=== PATIENT | female | born 1955 | race Caucasian/White ===

== ENCOUNTER 2017-10-07 13:04 | Inpatient (IN) ==
[2017-10-07 14:22] LABS: Basophils % 0.3 %; Eosinophils # 0.3 K/mcL (0.0-0.6); Eosinophils % 3.4 %; Hematocrit 39.7 % (35.3-44.9); Hemoglobin 12.3 g/dL (11.5-15.4); Immature Granulocytes % 1.4 % (0-4); Lymphocytes # 1.5 K/mcL (0.6-4.6); Lymphocytes % 20.3 %; Mean Corpuscular Hemoglobin 23.4 pg (28.0-33.3); Mean Corpuscular Volume 75.5 fL (83.0-100.0); Mean Platelet Volume 9.8 fL (9.4-12.4); Monocytes # 0.8 K/mcL (0.0-1.3); Monocytes % 10.9 %; Neutrophils # 4.7 K/mcL (1.6-8.9); Nucleated Red Blood Cells 0.3 /100 WBC (0); Platelet Count 198 K/mcL (140-400); Red Blood Count 5.26 M/mcL (3.82-4.97); Red Cell Distribution Width 19.1 % (11.5-14.5); Segmented Neutrophils % 63.7 %
[2017-10-07 14:45] LABS: Troponin I < 0.03 ng/mL (< 0.04)
[2017-10-07 15:16] LABS: BUN/Creatinine Ratio 14 (6-26); Blood Urea Nitrogen 16 mg/dL (8-23); Calcium 9.6 mg/dL (8.6-10.3); Carbon Dioxide 28 mEq/L (23-29); Chloride 102 mEq/L (98-107); Glucose 102 mg/dL (70-105); Osmolality,Calculated 291 (280-300); Potassium 4.2 mEq/L (3.5-5.1); Sodium 140 mEq/L (136-145); eGFR For African Americans 59 (> 60); eGFR For Non-African Americans 49 (> 60)
[2017-10-07] MEDS ORDERED: Ipratropium/Albuterol Neb 3 ML IH ONE (15:46)
--- NOTE | 2017-10-07 16:31 | Emergency Department Note ---
Disposition Clinical Impression: Acute exacerbation of chronic obstructive airways disease Pulmonary embolism Qualifiers: Pulmonary embolism type: other Chronicity: acute Acute cor pulmonale presence: without acute cor pulmonale Qualified Code(s): I26.99 - Other pulmonary embolism without acute cor pulmonale Disposition: Admitted As Inpatient Condition: Good Referrals: Kamini Lozano MD [Primary Care Provider] - Forms: ED Satisfaction Letter Time of Disposition: 16:39 SOB HPI - General Chief Complaint: ED Shortness of Breath/Dyspnea Stated Complaint: ALISON Source: patient, family, EMS Limitations: other (vague historian) Nursing Notes Reviewed: Yes Vital Signs Reviewed: Yes - History of Present Illness This is a 62 year-old female with history of asthma, COPD, PNA, and psychiatric problems, who presents with dyspnea, which is describes as a chronic problem, worse for the past few days. Associated with nonproductive cough and wheezing. She denies any associated chest pain, unilateral leg pain or swelling. Her also reports that she has been confused at times. She was sent to the ER from urgent care, where poor SpO2 was noted. Pt Subjective Complaint: shortness of breath, cough Onset (ago): week(s) (?) Severity: moderate Consistency/Duration: gradually worsening Improves with: nothing Worsens with: nothing Known history of: COPD, asthma, recurrent pneumonia Associated symptoms: Denies: chest pain, fever, cough - Related Data Home Medications Medication Instructions Recorded Confirmed Cyanocobalamin (Vitamin B-12) 1,000 mcg PO DAILY 07/01/16 09/02/16 [Vitamin B12] Divalproex (24 HR) [Depakote ER 2,000 mg PO HS 07/01/16 09/02/16 (24 HR)] Docusate [Colace] 200 mg PO DAILY 07/01/16 09/02/16 Gabapentin [Neurontin] 400 mg PO TID 07/01/16 09/02/16 Hydrochlorothiazide [Microzide] 2 cap PO DAILY 07/01/16 09/02/16 Linaclotide [Linzess] 290 mcg PO DAILY 07/01/16 09/02/16 Magnesium Citrate 100 mg PO DAILY PRN 07/01/16 09/02/16 Metoprolol [Lopressor] 25 mg PO BID 07/01/16 09/02/16 OLANZapine [Zyprexa] 20 mg PO DAILY 07/01/16 09/02/16 [place]-3/Dha/Epa/Fish Oil [Fish Oil 2 each PO DAILY 07/01/16 09/02/16 1,000 mg Softgel] Perphenazine [Trilafon] 1.5 mg PO DAILY 07/01/16 09/02/16 Ziprasidone HCl [Geodon] 80 mg PO BID 07/01/16 09/02/16 Allergies Allergy/AdvReac Type Severity Reaction Status Date / Time Cyclobenzaprine Allergy Nausea Verified 10/07/17 11:40 [From Flexeril] methocarbamol [From Robaxin] Allergy Hypotension Verified 10/07/17 11:40 NSAIDS (Non-Steroidal Allergy Hypotension Verified 10/07/17 11:40 Anti-Inflamma propoxyphene Allergy Hypotension Verified 10/07/17 11:40 [From Darvocet-N] Tizanidine [From Zanaflex] Allergy Hypotension Verified 10/07/17 11:40 All systems ED: reviewed and negative except as stated. Constitutional: Denies: fever Cardiovascular: Denies: chest pain Respiratory: Reports: dyspnea, wheezes. Denies: hemoptysis, sputum production Gastrointestinal: Denies: abdominal pain Neurological: Denies: headache, weakness, numbness Psychiatric: Reports: as per HPI Past Medical History - Past Medical History Medical history: Reports: hypertension Surgical history: Reports: no surgical history Psychiatric history: Reports: bipolar, schizophrenia - Social History Smoking Status: Never smoker Smokeless Tobacco Status: No Alcohol use: Reports: none Drug use: Reports: none Physical Exam - General Limitations: no limitations General appearance: alert, in no apparent distress - Head Head exam: atraumatic, normocephalic - Eye Eye exam: Present: normal appearance, PERRL, EOMI - ENT ENT exam: normal exam - Neck Neck exam: Present: normal inspection - Chest Chest inspection: Present: normal inspection - Respiratory Respiratory exam: Present: wheezes (scattered wheezes), other (slightly increased work of breathing) - Cardiovascular Cardiovascular exam: Present: regular rate, normal rhythm, normal heart sounds - Abdominal Exam Abdominal exam: Present: soft, Non-Tender. Absent: distention - Extremities Exam Extremities exam: Present: pedal edema. Absent: calf tenderness - Neurological Exam Neurological exam: Present: alert. Absent: motor sensory deficit - Psychiatric Psychiatric exam: Present: anxious - Skin Skin exam: Present: warm, dry, intact Course - Reevaluation(s) Reevaluation #1: Discussed test results and treatment plan with patient and family. Time: 18:15 - Consultations Consultation #1: Discussed case with Dr. Ceja. Patient accepted for admission. We will give IFV per his request. Time: 18:53 Vital Signs Temperature 98 F 10/07/17 13:10 Pulse Rate 85 10/07/17 13:10 Respiratory Rate 18 10/07/17 13:10 Blood Pressure 165/98 10/07/17 13:10 O2 Sat by Pulse Oximetry 92 10/07/17 13:10 Temperature 98 F 10/07/17 13:10 Pulse Rate 90 10/07/17 14:14 Respiratory Rate 16 10/07/17 15:52 Blood Pressure 164/110 10/07/17 14:14 O2 Sat by Pulse Oximetry 92 10/07/17 15:52 Oxygen Delivery Oxygen Delivery Nasal Cannula Shortness of Breath/Dyspnea - Differential Diagnosis Likely: acute exacerbation of chronic obstructive airways disease, congestive heart failure, pneumonia, asthma with exacerbation, pulmonary embolism - Lab Data Lab results reviewed: Yes I reviewed the patient's lab results. Result diagrams: 10/07/17 14:03 10/07/17 14:03 Lab Results 10/07/17 10/07/17 10/07/17 Range/Units 14:03 14:03 14:03 WBC 7.3 (4.3-11.1) K/mcL RBC 5.26 H (3.82-4.97) M/mcL Hgb 12.3 (11.5-15.4) g/dL Hct 39.7 (35.3-44.9) % MCV 75.5 L (83.0-100.0) fL MCH 23.4 L (28.0-33.3) pg MCHC 31.0 L (31.6-35.5) g/dL RDW 19.1 H (11.5-14.5) % Plt Count 198 (140-400) K/mcL MPV 9.8 (9.4-12.4) fL Immature Gran % 1.4 (0-4) % Seg Neutrophils % 63.7 % Lymphocytes % 20.3 % Monocytes % 10.9 % Eosinophils % 3.4 % Basophils % 0.3 % Neutrophils # 4.7 (1.6-8.9) K/mcL Lymphocytes # 1.5 (0.6-4.6) K/mcL Monocytes # 0.8 (0.0-1.3) K/mcL Eosinophils # 0.3 (0.0-0.6) K/mcL Basophils # 0.0 (0.0-0.2) K/mcL Nucleated RBCs/100 WBC 0.3 H (0) /100 WBC Immature Plt Fraction 3.0 (1.1-6.1) % D-Dimer (0-500) ng/mLFEU Sodium 140 (136-145) mEq/L Potassium 4.2 (3.5-5.1) mEq/L Chloride 102 (98-107) mEq/L Carbon Dioxide 28 (23-29) mEq/L BUN 16 (8-23) mg/dL Creatinine 1.13 (0.60-1.20) mg/dL Est GFR ( Amer) 59 L (> 60) Est GFR (Non-Af Amer) 49 L (> 60) BUN/Creatinine Ratio 14 (6-26) Glucose 102 (70-105) mg/dL Calculated Osmolality 291 (280-300) Lactic Acid 0.9 (0.5-2.2) mmol/L Calcium 9.6 (8.6-10.3) mg/dL Troponin I < 0.03 (< 0.04) ng/mL B-Natriuretic Peptide (Less than 100) pg/mL Valproic Acid 123 H* (50-100) mcg/mL 10/07/17 10/07/17 Range/Units 14:03 14:03 WBC (4.3-11.1) K/mcL RBC (3.82-4.97) M/mcL Hgb (11.5-15.4) g/dL Hct (35.3-44.9) % MCV (83.0-100.0) fL MCH (28.0-33.3) pg MCHC (31.6-35.5) g/dL RDW (11.5-14.5) % Plt Count (140-400) K/mcL MPV (9.4-12.4) fL Immature Gran % (0-4) % Seg Neutrophils % % Lymphocytes % % Monocytes % % Eosinophils % % Basophils % % Neutrophils # (1.6-8.9) K/mcL Lymphocytes # (0.6-4.6) K/mcL Monocytes # (0.0-1.3) K/mcL Eosinophils # (0.0-0.6) K/mcL Basophils # (0.0-0.2) K/mcL Nucleated RBCs/100 WBC (0) /100 WBC Immature Plt Fraction (1.1-6.1) % D-Dimer 1096 H (0-500) ng/mLFEU Sodium (136-145) mEq/L Potassium (3.5-5.1) mEq/L Chloride (98-107) mEq/L Carbon Dioxide (23-29) mEq/L BUN (8-23) mg/dL Creatinine (0.60-1.20) mg/dL Est GFR ( Amer) (> 60) Est GFR (Non-Af Amer) (> 60) BUN/Creatinine Ratio (6-26) Glucose (70-105) mg/dL Calculated Osmolality (280-300) Lactic Acid (0.5-2.2) mmol/L Calcium (8.6-10.3) mg/dL Troponin I (< 0.04) ng/mL B-Natriuretic Peptide 44 (Less than 100) pg/mL Valproic Acid (50-100) mcg/mL - Radiology Data Radiology results reviewed: Yes I reviewed the patient's radiology results. XR/XR chest 1V portable IMPRESSION: 1. Cardiomegaly without overt failure. 2. Increased density in the right lower lung zone which may be due to overlapping soft tissue. PA and lateral chest x-ray is suggested for further evaluation. Chest CTA - received call from [place] CT/CT angio chest IMPRESSION: 1. Acute pulmonary embolus in the proximal division branches supplying the right upper lobe 2. Bilateral lower lobe posterior basal atelectasis. 3. Heterogenous attenuation of the thyroid gland may be further evaluated with ultrasonography. 4. 13 mm right axillary lymph node, unchanged since prior. . 5. Communication pending. - EKG Data EKG attestation: Yes I reviewed and interpreted this EKG. EKG shows normal: Reports: sinus rhythm Rate: Reports: normal Rhythm: Reports: NSR Voltage: Reports: increased voltage throughout Interpretation: Reports: nonspecific ST-T wave changes
[2017-10-07] MEDS ORDERED: Isovue-370 500 ML INFUS..BTL IV ONE (16:37)
[2017-10-07] MEDS ORDERED: *HR* Heparin 5,000 UNIT/ML VIAL IVP ONE (17:45)
[2017-10-07 18:20] LABS: Valproate 123 mcg/mL (50-100)
[2017-10-07] MEDS ORDERED: 0.9 % Sodium Chloride 500 ML IVC ONE (18:54)
[2017-10-07] MEDS: 0.9 % Sodium Chloride 1,000 ML IVC SCH (19:51)
--- NOTE | 2017-10-07 20:56 | Internal Med History&Physical ---
<Moises Segura - Last Filed: 10/08/17 00:32> Date of Encounter: 10/08/17 Time of Encounter: 20:56 Internal Medicine - H&P: HPI Chief complaint: confusion Admitted From: Home Plans for Post Hospital Care: Home History of present illness: Ms. Vidal is a 62 year old female w/ pmh of morbid obesity, schizoaffective, chronic pain on opioids, HTN, CKD3, "air trapping' disease, old fracture of talus presents with "SOB". Patient was seen with . stated that patient has been confused for the last 2 days, and has progressively getting worse. Patient stated that she was not currently having shortness of breath but either 2 days ago or 10 days ago she went to urgent care and was given penicillin. Both her and her have had the flu. At one point during the encounter patient stated that the symptoms started two months ago. Patient denied chest pain or leg pain or previous history of PE or DVT or clotting issues. Patient admitted that she's been feeling really confused. Patient then changed subjects and states that she has been having 'peeing problems" for an unknown length of time. She states that she always feels like she needs to pee but is unable to. She states she's had a miller catheter in the past, but she would prefer a diaper. Patient then changed subject again and started talking about "eating or not eating." Past Med Surg Social Fam HX - Past Medical History Medical history: hypertension Psychiatric history: bipolar, schizophrenia - Past Surgical History Surgical History: no surgical history - Social History Smoking Status: Never smoker Smokeless Tobacco Status: No Alcohol use: none Drug use: none Internal Medicine - H&P: Meds Cyanocobalamin (Vitamin B-12) [Vitamin B12] 1,000 mcg PO DAILY 07/01/16 [History ] Divalproex (24 HR) [Depakote ER (24 HR)] 2,000 mg PO HS 07/01/16 [History] Docusate [Colace] 200 mg PO DAILY 07/01/16 [History] Gabapentin [Neurontin] 400 mg PO TID 07/01/16 [History] Hydrochlorothiazide [Microzide] 12.5 mg PO DAILY 07/01/16 [History] Linaclotide [Linzess] 290 mcg PO DAILY 02/06/17 [History] Magnesium Citrate 100 mg PO DAILY PRN 07/01/16 [History] Metoprolol [Lopressor] 25 mg PO BID 07/01/16 [History] OLANZapine [Zyprexa] 20 mg PO DAILY 07/01/16 [History] [place]-3/Dha/Epa/Fish Oil [Fish Oil 1,000 mg Softgel] 2 each PO DAILY 07/01/16 [ History] Perphenazine [Trilafon] 1.5 mg PO DAILY 07/01/16 [History] Ziprasidone HCl [Geodon] 80 mg PO BID 07/01/16 [History] 3 Allergy/AdvReac Type Severity Reaction Status Date / Time Cyclobenzaprine Allergy Nausea Verified 10/07/17 11:40 [From Flexeril] methocarbamol [From Robaxin] Allergy Hypotension Verified 10/07/17 11:40 NSAIDS (Non-Steroidal Allergy Hypotension Verified 10/07/17 11:40 Anti-Inflamma propoxyphene Allergy Hypotension Verified 10/07/17 11:40 [From Darvocet-N] Tizanidine [From Zanaflex] Allergy Hypotension Verified 10/07/17 11:40 All Systems PM: A 10-system review of systems was performed and is negative for pertinent findings except as documented above in the HPI. - Constitutional Constitutional: weakness, no chills, no fever(s), no night sweats - EENT Eyes: no change in vision, no discharge, no pain, no photophobia Ears: no ear discharge, no ear pain, no tinnitus Nose, mouth and throat: no dysphagia, no nasal discharge, no neck pain, no sore throat - Cardiovascular Cardiovascular ROS IM: no chest pain, no diaphoresis, no dyspnea, no dyspnea on exertion, no irregular heart rhythm, no lightheadedness, no orthopnea, no palpitations, no paroxysmal nocturnal dyspnea, no syncope - Respiratory Respiratory: no cough, no dyspnea, no wheezing, no excessive phlegm production - Gastrointestinal Gastrointestinal: no abdominal pain, no diarrhea, no hematemesis, no hematochezia, no melena, no nausea, no vomiting - Genitourinary Genitourinary: difficulty urinating, urinary incontinence, urinary urgency, no change in urinary stream, no dysuria, no flank pain, no hematuria, no urinary frequency, no urinary hesitancy - Musculoskeletal Musculoskeletal ROS IM: no numbness, no tingling - Integumentary Integumentary IM: no rash, no unusual bruising - Neurological Neurological ROS: no confusion, no convulsions, no focal weakness, no numbness, no tingling, no tremor(s) - Psychiatric Psychiatric: confusion, hallucinations - Hematologic/Lymphatic Hematologic/Lymphatic: no easy bruising - Constitutional Vitals: Temp Pulse Resp BP Pulse Ox 98 F 94 18 175/140 92 10/07/17 13:10 10/07/17 19:48 10/07/17 20:44 10/07/17 20:44 10/07/17 19:48 General appearance: Present: cooperative, disheveled, A&O X 2, mild distress, morbidly obese. Absent: answers questions appropriately - Head Head exam: Present: atraumatic, normocephalic - Eye Eye exam: Present: PERRL, conjuntiva pink, sclera anicteric Pupils: Present: PERRL - Neck Neck exam general surgery: Present: supple, trachea midline. Absent: lymphadenopathy, tenderness, nuchal rigidity, thyromegaly - Respiratory Respiratory exam: Present: decreased breath sounds. Absent: accessory muscle use, rales, respiratory distress, rhonchi, wheezes - Cardiovascular Cardiovascular exam: Present: tachycardia. Absent: diastolic murmur, gallop, rubs, systolic murmur - GI/Abdominal GI/Abdominal exam: Present: normal bowel sounds, soft, no peritoneal signs. Absent: diminished bowel sounds, distended, firm, guarding, hernia, hepatomegaly , hyperactive bowel sounds, tenderness - Extremities Exam Extremities exam: Present: warm, radial pulses palpable and symmetrical. Absent : calf tenderness, cyanotic, pedal edema - Neurological Exam Neurological exam: Present: CN II-XII intact, oriented X3, no focal deficits. Absent: pronater drift, facial droop, speech deficit - Skin Skin exam: Present: dry, intact Internal Med - H&P Results - Labs CBC & Chem 7: 10/07/17 14:03 10/07/17 14:03 - Assessment and plan (1) Pulmonary embolism Current Visit: Yes Status: Acute Assessment and plan: CTA performed in ED identified acute PE in proximal division branches supplying right upper lobe. D-Dimer elevated as well. Patient was started on heparin drip in ED. - heparin bridge to coumadin; Pharm to dose. will order after Confusion work up - monitor O2 Qualifiers: Pulmonary embolism type: other Chronicity: acute Acute cor pulmonale presence: without acute cor pulmonale Qualified Code(s): I26.99 - Other pulmonary embolism without acute cor pulmonale (2) Confusion Current Visit: Yes Status: Acute Assessment and plan: Patient has increased confusion in the last two days. May be associated with psychiatric hx vs high risk for multi-pharmacy vs less likely valproic acid toxicity vs Urine retention vs other causes. Patient has known history of schizophrenia and is on ziprasidone, zyprexa, gabapentin, depakote ER, and unlisted Opioids. Valproic acid in the ED was mildly elevated at 123. Will further workup. - NH3, TSH, B12, ABG, ESR, RACHELLE, TPO, thyroglobulin - pending - tox screen - head CT pending; will have to wait until contrast wash out - miller cath placement, UA pending - valproic acid toxicity - provide support, may benefit with naloxone. if patient has seizure like activity can give benzo. hold PM dose of valproic acid , gabapentin (3) Urine retention Current Visit: Yes Status: Acute Assessment and plan: see above (4) HTN (hypertension) Current Visit: Yes Status: Acute Assessment and plan: restart home rx. currently stable Qualifiers: Qualified Code(s): I10 - Essential (primary) hypertension (5) Diabetes Current Visit: Yes Status: Acute Assessment and plan: hold home Rx. SSI Qualifiers: Qualified Code(s): E11.9 - Type 2 diabetes mellitus without complications (6) CKD (chronic kidney disease), stage III Current Visit: Yes Status: Acute Assessment and plan: Patient follows with Dr. Bustillo. Cr on admission 1.13, baseline 0.85-0.95. GFR 49, baseline ~55 (7) Schizophrenia Current Visit: Yes Status: Acute Assessment and plan: see above. high risk polypharm: ziprasidone, perphenazine, olanzapine, gabapentin, depakote ER Qualifiers: Qualified Code(s): F20.9 - Schizophrenia, unspecified - Time Spent With Patient Total time spent is greater than 50% in coordination of care (as documented) at patient's floor/unit and/or counseling patient: <Maverick Holloway - Last Filed: 10/08/17 07:47> Date of Encounter: 10/07/17 Internal Medicine - H&P: HPI Chief complaint: Confusion Admitted From: Emergency Dept History of present illness: Ms. Vidal is a 62 year old female All Systems PM: A 10-system review of systems was performed and is negative for pertinent findings except as documented above in the HPI. - Constitutional Vitals: Temp Pulse Resp BP Pulse Ox 98.3 F 63 14 104/69 92 10/08/17 05:07 10/08/17 05:07 10/08/17 05:07 10/08/17 05:07 10/08/17 05:07 Internal Med - H&P Results - Labs CBC & Chem 7: 10/08/17 03:50 10/08/17 03:50 Labs: Short CBC 10/08/17 Range/Units 03:50 WBC 8.1 (4.3-11.1) K/mcL Hgb 10.8 L D (11.5-15.4) g/dL Hct 34.9 L (35.3-44.9) % Plt Count 176 (140-400) K/mcL Neutrophils # 4.7 (1.6-8.9) K/mcL BMP 10/08/17 03:50 Sodium 145 Potassium 4.5 Chloride 107 Carbon Dioxide 30 H BUN 12 Creatinine 0.95 Glucose 103 Calcium 8.6 Liver Function 10/08/17 Range/Units 03:50 Total Bilirubin 0.3 (0.3-1.0) mg/dL AST 12 L (13-39) Units/L ALT 8 (7-52) Units/L Alkaline Phosphatase 47 (34-104) Units/L Albumin 3.2 L (3.5-5.7) g/dL - Attending Attestation I performed a history and physical examination of the patient on 10/07/17 and discussed his management with the resident. I reviewed the residents note and agree with the documented findings and plan of care. Briefly, patient admitted for pulmonary embolism. Respiratory status stable right now. Still with minor confusion per ; just having hard time recalling some things. Depakote level was up, so held this evening's depakote dose. Resident was told about her urinary retention, but nurse tells me she was able to void. We will continue IVF and heparin drip and consider bridge to coumadin vs NOAC. Maverick Holloway MD - Assessment and plan (1) Pulmonary embolism Current Visit: Yes Status: Acute Qualifiers: Pulmonary embolism type: other Chronicity: acute Acute cor pulmonale presence: without acute cor pulmonale Qualified Code(s): I26.99 - Other pulmonary embolism without acute cor pulmonale (2) Confusion Current Visit: Yes Status: Acute (3) Urine retention Current Visit: Yes Status: Acute (4) HTN (hypertension) Current Visit: Yes Status: Acute Qualifiers: Qualified Code(s): I10 - Essential (primary) hypertension (5) Diabetes Current Visit: Yes Status: Acute Qualifiers: Qualified Code(s): E11.9 - Type 2 diabetes mellitus without complications (6) CKD (chronic kidney disease), stage III Current Visit: Yes Status: Acute (7) Schizophrenia Current Visit: Yes Status: Acute Qualifiers: Qualified Code(s): F20.9 - Schizophrenia, unspecified - Time Spent With Patient Total time spent is greater than 50% in coordination of care (as documented) at patient's floor/unit and/or counseling patient:
[2017-10-07 21:04] LABS: INR 1.1; Prothrombin Time 11.9 Seconds (9.4-12.1)
[2017-10-07 21:06] LABS: Activated Partial Thrombo Time 32.3 Seconds (26.0-36.0)
[2017-10-07] MEDS ORDERED: Naloxone 0.4 MG/ML INJ IVP PRN (21:28)
[2017-10-07] MEDS: Heparin 25,000 UNIT/500 ML D5W 25,000 UNIT/500 ML BAG IVC SCH (23:43)
[2017-10-08 04:18] LABS: Basophils % 0.1 %; Eosinophils # 0.2 K/mcL (0.0-0.6); Eosinophils % 2.7 %; Hematocrit 34.9 % (35.3-44.9); Hemoglobin 10.8 g/dL (11.5-15.4); Immature Granulocytes % 1.1 % (0-4); Lymphocytes # 2.1 K/mcL (0.6-4.6); Lymphocytes % 26.2 %; Mean Corpuscular HGB Conc 30.9 g/dL (31.6-35.5); Mean Corpuscular Hemoglobin 23.3 pg (28.0-33.3); Mean Corpuscular Volume 75.2 fL (83.0-100.0); Mean Platelet Volume 9.7 fL (9.4-12.4); Monocytes # 0.9 K/mcL (0.0-1.3); Monocytes % 11.2 %; Neutrophils # 4.7 K/mcL (1.6-8.9); Nucleated Red Blood Cells 0.4 /100 WBC (0); Platelet Count 176 K/mcL (140-400); Red Blood Count 4.64 M/mcL (3.82-4.97); Red Cell Distribution Width 18.8 % (11.5-14.5); Segmented Neutrophils % 58.7 %
[2017-10-08 04:36] LABS: Alanine Aminotransferase 8 Units/L (7-52); Albumin 3.2 g/dL (3.5-5.7); Albumin/Globulin Ratio 1.3 (1.1-2.2); Alkaline Phosphatase 47 Units/L (34-104); Aspartate Amino Transferase 12 Units/L (13-39); BUN/Creatinine Ratio 13 (6-26); Bilirubin,Total 0.3 mg/dL (0.3-1.0); Blood Urea Nitrogen 12 mg/dL (8-23); Calcium 8.6 mg/dL (8.6-10.3); Carbon Dioxide 30 mEq/L (23-29); Chloride 107 mEq/L (98-107); Globulin 2.4 g/dL (2.4-3.5); Glucose 103 mg/dL (70-105); Osmolality,Calculated 300 (280-300); Potassium 4.5 mEq/L (3.5-5.1); Sodium 145 mEq/L (136-145); Total Protein 5.6 g/dL (6.4-8.9); eGFR For African Americans > 60 (> 60); eGFR For Non-African Americans 60 (> 60)
[2017-10-08 04:49] LABS: Activated Partial Thrombo Time > 360.0 Seconds (26.0-36.0)
[2017-10-08 04:50] LABS: Heparin anti-factor XA UFH 1.51 IU/mL (0.30-0.70)
[2017-10-08] MEDS: 0.9 % Sodium Chloride 1,000 ML IVC SCH ×2 (05:57→12:03)
[2017-10-08 07:55] LABS: Bilirubin,Urine Negative (Negative); Blood,Urine Negative (Negative); Clarity,Urine Clear (Clear); Color,Urine Yellow (Yellow); Glucose,Urine (UA) Normal (Normal); Ketones,Urine Trace mg/dL (Negative); Leukocyte Esterase,Urine Negative (Negative); Nitrite,Urine Negative (Negative); PH,Urine 6.5 pH Units (5.0-8.0); Protein,Urine Negative (Neg-Trace); Specific Gravity,Urine 1.021 (1.010-1.025); Urobilinogen,Urine Normal (Normal)
[2017-10-08 07:58] LABS: Amphetamine Screen,Urine Negative ng/mL (Cutoff=1000); Barbiturate Screen,Urine Negative ng/mL (Cutoff=200); Benzodiazepines Screen,Urine Negative ng/mL (Cutoff=200); Cannabinoid Screen,Urine Negative ng/mL (Cutoff = 50); Cocaine Screen,Urine Negative ng/mL (Cutoff= 300); Opiate Screen,Urine Positive ng/mL (Cutoff=300); Phencyclidine Screen,Urine Negative ng/mL (Cutoff=25)
--- NOTE | 2017-10-08 08:43 | Electrocardiograph Report ---
[place] [facility] Test Date: 2017-10-07 Pat Name: Betty Vidal Department: 102 Room: 2S8 Gender: F Channel Turner: Nicole : 1955 Requested By: Moises Keenan Order Number: [id number] Reading MD: Serg Whitaker Measurements Intervals [place] Rate: 80 P: 53 NM: 163 QRS: -17 QRSD: 114 T: 12 QT: 410 QTc: 446 Interpretive Statements SINUS RHYTHM LEFT VENTRICULAR HYPERTROPHY AND ST-T CHANGE [VOLTAGE CRITERIA PLUS ST/T ABNORMALITY] Electronically Signed On 10-08-2017 8:42:25 EDT by Serg Whitaker
[2017-10-08] MEDS: hydroCHLOROthiazide 25 MG TABLET PO SCH (12:01)
[2017-10-08] MEDS: Cyanocobalamin (B-12) 1,000 MCG TABLET PO SCH (12:02)
[2017-10-08] MEDS: Cholecalciferol (D-3) 1,000 UNIT TABLET PO SCH (12:02)
[2017-10-08] MEDS: OLANZapine 10 MG TAB.RAPDIS PO SCH (12:02)
[2017-10-08] MEDS: Ziprasidone 80 MG CAPSULE PO SCH ×2 (12:02→22:14)
[2017-10-08] MEDS: Perphenazine 2 MG TABLET PO SCH (12:02)
[2017-10-08] MEDS: Gabapentin 400 MG CAPSULE PO SCH ×6 (12:02→22:15)
[2017-10-08] MEDS: (Linaclotide [Linzess] 290 MCG) PO SCH (12:04)
[2017-10-08] MEDS: Latanoprost 2.5 ML BOTTLE BOTH EYES SCH (12:04)
[2017-10-08] MEDS: (Omega-3/Dha/Epa/Fish Oil [Fish Oil 1,000 Mg Softgel] PO SCH (12:04)
[2017-10-08] MEDS: *HR* OxyCODONE/APAP 10/325 TABLET PO PRN ×2 (13:39→21:00)
--- NOTE | 2017-10-08 16:02 | Internal Med Progress Note ---
Date of Encounter: 10/08/17 Time of Encounter: 15:45 - Assessment and plan (1) Respiratory failure Current Visit: Yes Status: Acute Assessment and plan: Will check oxygen needs at discharge. said she dropped oxygen saturation to 70s at urgent care. Qualifiers: Chronicity: acute Respiratory failure complication: hypoxia Qualified Code(s): J96.01 - Acute respiratory failure with hypoxia (2) Pulmonary embolism Current Visit: Yes Status: Acute Assessment and plan: CTA performed in ED identified acute PE in proximal division branches supplying right upper lobe. D-Dimer elevated as well. Patient was started on heparin drip in ED. - interested in NOAC. Will packer check tomorrow. Continue heparin drip for now. Qualifiers: Pulmonary embolism type: other Chronicity: acute Acute cor pulmonale presence: without acute cor pulmonale Qualified Code(s): I26.99 - Other pulmonary embolism without acute cor pulmonale (3) Confusion Current Visit: Yes Status: Acute Assessment and plan: Seems to be improving today. Valproic acid level high - recheck tomorrow. Continue to follow symptomatically as well. Hypoxemia may also have been playing a role. (4) Urine retention Current Visit: Yes Status: Acute Assessment and plan: Chronic issue (5) HTN (hypertension) Current Visit: Yes Status: Acute Assessment and plan: Continue current treatment. Qualifiers: Hypertension type: essential hypertension Qualified Code(s): I10 - Essential (primary) hypertension (6) CKD (chronic kidney disease), stage III Current Visit: Yes Status: Chronic Assessment and plan: Patient follows with Dr. Bustillo. Improved at this time. (7) Schizophrenia Current Visit: Yes Status: Acute Assessment and plan: high risk polypharm: ziprasidone, perphenazine, olanzapine, gabapentin, depakote ER Continue meds - check for interactions with NOAC Qualifiers: Schizophrenia type: unspecified Qualified Code(s): F20.9 - Schizophrenia, unspecified (8) Morbid obesity with BMI of 40.0-44.9, adult Current Visit: Yes Status: Chronic Assessment and plan: Chronic issue - Time Spent With Patient Total time spent is greater than 50% in coordination of care (as documented) at patient's floor/unit and/or counseling patient: - Subjective Interval history: Ms Vidal is currently admitted for acute PE. She remains moderate to high risk due to potential for worsening clinical status. Ms Vidal is having a lot of pain in her hip (chronic). She is tolerating heparin. is interested in her being on a NOAC. He is also concerned she may need oxygen. No fever or chills. - Constitutional Vitals: Temp Pulse Resp BP Pulse Ox 98.2 F 87 16 136/103 93 10/08/17 12:25 10/08/17 12:25 10/08/17 12:25 10/08/17 12:25 10/08/17 12:25 General appearance: Present: cooperative, disheveled, A&O X 2, morbidly obese, answers questions appropriately - Head Head exam: Present: normocephalic - Eye Eye exam: Present: conjuntiva pink - ENT ENT exam: Present: mucous membranes dry - Respiratory Respiratory exam: Present: decreased breath sounds, CTAB. Absent: rales, rhonchi, wheezes - Cardiovascular Cardiovascular exam: Present: RRR. Absent: tachycardia - GI/Abdominal GI/Abdominal exam: Present: normal bowel sounds, soft. Absent: tenderness - Extremities Exam Extremities exam: Present: warm. Absent: tenderness - Neurological Exam Neurological exam: Present: alert, no focal deficits - Skin Skin exam: Present: dry, warm Internal Medicine: Result - Labs CBC & Chem 7: 10/08/17 03:50 10/08/17 03:50 Labs: Short CBC 10/08/17 Range/Units 03:50 WBC 8.1 (4.3-11.1) K/mcL Hgb 10.8 L D (11.5-15.4) g/dL Hct 34.9 L (35.3-44.9) % Plt Count 176 (140-400) K/mcL Neutrophils # 4.7 (1.6-8.9) K/mcL BMP 10/08/17 03:50 Sodium 145 Potassium 4.5 Chloride 107 Carbon Dioxide 30 H BUN 12 Creatinine 0.95 Glucose 103 Calcium 8.6 Liver Function 10/08/17 Range/Units 03:50 Total Bilirubin 0.3 (0.3-1.0) mg/dL AST 12 L (13-39) Units/L ALT 8 (7-52) Units/L Alkaline Phosphatase 47 (34-104) Units/L Albumin 3.2 L (3.5-5.7) g/dL Urine 10/08/17 Range/Units 06:43 Urine Color Yellow (Yellow) Urine Clarity Clear (Clear) Urine pH 6.5 (5.0-8.0) pH Units Ur Specific [place] 1.021 (1.010-1.025) Urine Protein Negative (Neg-Trace) mg/dL Urine Glucose (UA) Normal (Normal) mg/dL - ABG Interpretation ABG results: PT/INR, D-dimer PT 11.9 Seconds (9.4-12.1) 10/07/17 19:45 D-Dimer 1096 ng/mLFEU (0-500) H 10/07/17 14:03 - VTE Reasons for not Prescribing Prophylaxis: Not indicated-Anticoagulated or INR therapeutic Consult Discharge Plan - Plan Referrals: Kamini Lozano MD [Primary Care Provider] -
[2017-10-08] MEDS: Famotidine 20 MG TABLET PO SCH ×2 (16:37→22:17)
[2017-10-08] MEDS: Heparin 25,000 UNIT/500 ML D5W 25,000 UNIT/500 ML BAG IVC SCH (21:12)
[2017-10-09] MEDS: *HR* OxyCODONE/APAP 10/325 TABLET PO PRN ×2 (01:18→23:39)
[2017-10-09 01:51] LABS: Hematocrit 35.8 % (35.3-44.9); Hemoglobin 10.8 g/dL (11.5-15.4); Mean Corpuscular HGB Conc 30.2 g/dL (31.6-35.5); Mean Corpuscular Hemoglobin 22.5 pg (28.0-33.3); Mean Corpuscular Volume 74.7 fL (83.0-100.0); Mean Platelet Volume 9.8 fL (9.4-12.4); Platelet Count 187 K/mcL (140-400); Red Blood Count 4.79 M/mcL (3.82-4.97); Red Cell Distribution Width 19.2 % (11.5-14.5)
[2017-10-09 02:10] LABS: Alanine Aminotransferase 8 Units/L (7-52); Albumin 3.3 g/dL (3.5-5.7); Albumin/Globulin Ratio 1.4 (1.1-2.2); Alkaline Phosphatase 46 Units/L (34-104); Aspartate Amino Transferase 14 Units/L (13-39); BUN/Creatinine Ratio 12 (6-26); Bilirubin,Total 0.3 mg/dL (0.3-1.0); Blood Urea Nitrogen 8 mg/dL (8-23); Calcium 8.6 mg/dL (8.6-10.3); Carbon Dioxide 27 mEq/L (23-29); Chloride 104 mEq/L (98-107); Globulin 2.4 g/dL (2.4-3.5); Glucose 98 mg/dL (70-105); Magnesium 1.6 mg/dL (1.6-2.6); Osmolality,Calculated 286 (280-300); Potassium 4.1 mEq/L (3.5-5.1); Sodium 139 mEq/L (136-145); Total Protein 5.7 g/dL (6.4-8.9); Valproate 52 mcg/mL (50-100); eGFR For African Americans > 60 (> 60); eGFR For Non-African Americans > 60 (> 60)
[2017-10-09] MEDS: Famotidine 20 MG TABLET PO SCH ×2 (10:02→21:08)
[2017-10-09] MEDS: OLANZapine 10 MG TAB.RAPDIS PO SCH (10:02)
[2017-10-09] MEDS: Cholecalciferol (D-3) 1,000 UNIT TABLET PO SCH (10:03)
[2017-10-09] MEDS: Gabapentin 400 MG CAPSULE PO SCH ×6 (10:03→21:08)
[2017-10-09] MEDS: Cyanocobalamin (B-12) 1,000 MCG TABLET PO SCH (10:03)
[2017-10-09] MEDS: Perphenazine 2 MG TABLET PO SCH (10:03)
[2017-10-09] MEDS: Ziprasidone 80 MG CAPSULE PO SCH ×2 (10:03→21:07)
[2017-10-09] MEDS: hydroCHLOROthiazide 25 MG TABLET PO SCH (10:03)
[2017-10-09] MEDS: Latanoprost 2.5 ML BOTTLE BOTH EYES SCH (10:04)
[2017-10-09] MEDS: Apixaban 5 MG TABLET PO SCH ×2 (10:04→21:07)
[2017-10-09] MEDS: Divalproex (12 HR) 500 MG TABLET PO SCH (10:05)
[2017-10-09] MEDS: (Linaclotide [Linzess] 290 MCG) PO SCH (10:12)
[2017-10-09] MEDS: (Omega-3/Dha/Epa/Fish Oil [Fish Oil 1,000 Mg Softgel] PO SCH (10:12)
[2017-10-09 15:20] LABS: Thyroglobulin Antibody <0.9 IU/mL (0.0-4.0); Thyroglobulin, Serum or Plasma 47.5 ng/mL (1.3-31.8)
--- NOTE | 2017-10-09 19:11 | Internal Med Progress Note ---
Date of Encounter: 10/09/17 Time of Encounter: 15:15 - Assessment and plan (1) Respiratory failure Current Visit: Yes Status: Acute Assessment and plan: Oxygen needs have increased. Repeat CXR today. Continue anticoagulant and supportive care. IS added. Qualifiers: Chronicity: acute Respiratory failure complication: hypoxia Qualified Code(s): J96.01 - Acute respiratory failure with hypoxia (2) Pulmonary embolism Current Visit: Yes Status: Acute Assessment and plan: CTA performed in ED identified acute PE in proximal division branches supplying right upper lobe. D-Dimer elevated as well. Patient was started on heparin drip in ED. - Switched to Eliquis today. Qualifiers: Pulmonary embolism type: other Chronicity: acute Acute cor pulmonale presence: without acute cor pulmonale Qualified Code(s): I26.99 - Other pulmonary embolism without acute cor pulmonale (3) Constipation by delayed colonic transit Current Visit: Yes Status: Acute Assessment and plan: Laxatives added. (4) Confusion Current Visit: Yes Status: Resolved Assessment and plan: Appears to be at baseline mentation. (5) Urine retention Current Visit: Yes Status: Resolved (6) HTN (hypertension) Current Visit: Yes Status: Acute Assessment and plan: Continue current treatment. Qualifiers: Hypertension type: essential hypertension Qualified Code(s): I10 - Essential (primary) hypertension (7) CKD (chronic kidney disease), stage III Current Visit: Yes Status: Chronic Assessment and plan: Patient follows with Dr. Bustillo. Improved at this time. (8) Schizophrenia Current Visit: Yes Status: Acute Assessment and plan: high risk polypharm: ziprasidone, perphenazine, olanzapine, gabapentin, depakote ER Restart lower dose of Depakote today. Qualifiers: Schizophrenia type: unspecified Qualified Code(s): F20.9 - Schizophrenia, unspecified (9) Morbid obesity with BMI of 40.0-44.9, adult Current Visit: Yes Status: Chronic Assessment and plan: Chronic issue - Time Spent With Patient Total time spent is greater than 50% in coordination of care (as documented) at patient's floor/unit and/or counseling patient: - Subjective Interval history: Ms Vidal is currently admitted for acute PE. She remains moderate to high risk due to potential for worsening clinical status. Ms Vidal is requiring higher levels of oxygen. She denies new pain - has chronic pain. No fever or chills. No cough. No GI issues. - Constitutional Vitals: Temp Pulse Resp BP Pulse Ox 98.3 F 72 17 154/98 93 10/09/17 15:55 10/09/17 15:55 10/09/17 15:55 10/09/17 15:55 10/09/17 15:55 General appearance: Present: cooperative, disheveled, A&O X 2, morbidly obese, answers questions appropriately - Head Head exam: Present: normocephalic - Eye Eye exam: Present: conjuntiva pink - ENT ENT exam: Present: mucous membranes moist - Respiratory Respiratory exam: Present: decreased breath sounds. Absent: rales, rhonchi, wheezes - Cardiovascular Cardiovascular exam: Present: RRR. Absent: tachycardia - GI/Abdominal GI/Abdominal exam: Present: distended, soft. Absent: tenderness - Extremities Exam Extremities exam: Present: tenderness, warm - Neurological Exam Neurological exam: Present: alert, no focal deficits - Skin Skin exam: Present: dry, warm Internal Medicine: Result - Labs CBC & Chem 7: 10/09/17 01:30 10/09/17 01:30 Labs: Short CBC 10/09/17 Range/Units 01:30 WBC 7.7 (4.3-11.1) K/mcL Hgb 10.8 L (11.5-15.4) g/dL Hct 35.8 (35.3-44.9) % Plt Count 187 (140-400) K/mcL BMP 10/09/17 01:30 Sodium 139 Potassium 4.1 Chloride 104 Carbon Dioxide 27 BUN 8 Creatinine 0.69 Glucose 98 Calcium 8.6 Liver Function 10/09/17 Range/Units 01:30 Total Bilirubin 0.3 (0.3-1.0) mg/dL AST 14 (13-39) Units/L ALT 8 (7-52) Units/L Alkaline Phosphatase 46 (34-104) Units/L Albumin 3.3 L (3.5-5.7) g/dL - ABG Interpretation ABG results: PT/INR, D-dimer PT 11.9 Seconds (9.4-12.1) 10/07/17 19:45 D-Dimer 1096 ng/mLFEU (0-500) H 10/07/17 14:03 - Impressions Impressions Chest X-Ray 10/09/17 12:55 IMPRESSION: No acute findings. D/ / Tina Kaiser MD / Tina Kaiser MD Interpreting Provider: Tina Kaiser MD - VTE Reasons for not Prescribing Prophylaxis: Not indicated-Anticoagulated or INR therapeutic Consult Discharge Plan - Plan Referrals: Kamini Lozano MD [Primary Care Provider] -
[2017-10-09] MEDS ORDERED: Divalproex (12 HR) 500 MG TABLET PO SCH (21:00)
[2017-10-10] MEDS ORDERED: hydrALAZINE 10 MG TABLET PO PRN (01:59)
[2017-10-10 04:00] LABS: Hematocrit 34.7 % (35.3-44.9); Hemoglobin 10.8 g/dL (11.5-15.4); Mean Corpuscular HGB Conc 31.1 g/dL (31.6-35.5); Mean Corpuscular Volume 73.8 fL (83.0-100.0); Mean Platelet Volume 10.1 fL (9.4-12.4); Platelet Count 205 K/mcL (140-400); Red Cell Distribution Width 19.1 % (11.5-14.5)
[2017-10-10 04:22] LABS: BUN/Creatinine Ratio 9 (6-26); Blood Urea Nitrogen 6 mg/dL (8-23); Calcium 9.1 mg/dL (8.6-10.3); Carbon Dioxide 31 mEq/L (23-29); Chloride 103 mEq/L (98-107); Glucose 91 mg/dL (70-105); Osmolality,Calculated 289 (280-300); Potassium 4.2 mEq/L (3.5-5.1); Sodium 141 mEq/L (136-145); eGFR For African Americans > 60 (> 60); eGFR For Non-African Americans > 60 (> 60)
[2017-10-10 06:51] LABS: ANA IgG by ELISA NONE DETECTED (None Detected)
[2017-10-10 07:26] VITALS: BP 148/97
[2017-10-10] MEDS: OLANZapine 10 MG TAB.RAPDIS PO SCH (08:03)
[2017-10-10] MEDS: Apixaban 5 MG TABLET PO SCH (08:03)
[2017-10-10] MEDS: Divalproex (12 HR) 500 MG TABLET PO SCH (08:04)
[2017-10-10] MEDS: hydroCHLOROthiazide 25 MG TABLET PO SCH (08:04)
[2017-10-10] MEDS: Cyanocobalamin (B-12) 1,000 MCG TABLET PO SCH (08:04)
[2017-10-10] MEDS: Famotidine 20 MG TABLET PO SCH (08:04)
[2017-10-10] MEDS: *HR* OxyCODONE/APAP 10/325 TABLET PO PRN (08:04)
[2017-10-10] MEDS: Cholecalciferol (D-3) 1,000 UNIT TABLET PO SCH (08:04)
[2017-10-10] MEDS: Gabapentin 400 MG CAPSULE PO SCH (08:04)
[2017-10-10] MEDS: Ziprasidone 80 MG CAPSULE PO SCH (08:04)
--- NOTE | 2017-10-10 09:08 | Discharge Summary ---
<Nicola Quintanilla - Last Filed: 10/10/17 11:24> - NOTES TO OUTPATIENT PROVIDER Notes to Outpatient Provider: -DC with home PT/OT. -May need thyroid ultrasound Date of Encounter: 10/10/17 Time of Encounter: 09:00 - Discharge Diagnosis (1) Pulmonary embolism Status: Acute Qualifiers: Pulmonary embolism type: other Chronicity: acute Acute cor pulmonale presence: without acute cor pulmonale Qualified Code(s): I26.99 - Other pulmonary embolism without acute cor pulmonale (2) Confusion Status: Resolved (3) Urine retention Status: Resolved (4) HTN (hypertension) Status: Acute Qualifiers: Hypertension type: essential hypertension Qualified Code(s): I10 - Essential (primary) hypertension (5) CKD (chronic kidney disease), stage III Status: Chronic (6) Schizophrenia Status: Acute Qualifiers: Schizophrenia type: unspecified Qualified Code(s): F20.9 - Schizophrenia, unspecified (7) Morbid obesity with BMI of 40.0-44.9, adult Status: Chronic (8) Respiratory failure Status: Acute Qualifiers: Chronicity: acute Respiratory failure complication: hypoxia Qualified Code(s): J96.01 - Acute respiratory failure with hypoxia (9) Constipation by delayed colonic transit Status: Acute Hospital course: Ms. Vidal is a 62 year old female - Time Spent with Patient Total time spent providing and/or coordinating discharge services: - Discharge Medications Home Medications: Gabapentin [Neurontin] 400 mg PO TID 07/01/16 [History] Hydrochlorothiazide [Microzide] 12.5 mg PO DAILY 07/01/16 [History] Linaclotide [Linzess] 290 mcg PO DAILY 07/01/16 [History] Magnesium Citrate 100 mg PO DAILY PRN 07/01/16 [History] Metoprolol [Lopressor] 25 mg PO BID 07/01/16 [History] OLANZapine [Zyprexa] 20 mg PO DAILY 07/01/16 [History] [place]-3/Dha/Epa/Fish Oil [Fish Oil 1,000 mg Softgel] 2 each PO DAILY 07/01/16 [ History] Ziprasidone HCl [Geodon] 80 mg PO BID 07/01/16 [History] Cholecalciferol (D-3) [Vitamin D] 5,000 unit PO DAILY 10/08/17 [History] Divalproex (12 HR) [Depakote (12 HR)] 1,500 mg PO HS 10/08/17 [History] Divalproex (12 HR) [Depakote (12 HR)] 500 mg PO QAM 10/08/17 [History] Latanoprost [Xalatan] 1 drop OP DAILY 10/08/17 [History] Losartan [Cozaar] 25 mg PO DAILY 10/08/17 [History] OxyCODONE/APAP 10/325 [Percocet 10/325 MG] 1 tab PO Q4HR PRN 10/08/17 [History] Psyllium Husk [Fiber] 0.52 gm PO DAILY 10/08/17 [History] Ranitidine HCl [Heartburn Relief] 150 mg PO BID 10/08/17 [History] Apixaban [Eliquis] 5 mg PO BID tablet 10/10/17 [Rx] Apixaban [Eliquis] 10 mg PO BID 14 Days tablet 10/10/17 [Rx] Docusate [Colace] 200 mg PO DAILY capsule 10/10/17 [Rx] Allergies/Adverse Reactions: 3 Allergy/AdvReac Type Severity Reaction Status Date / Time Cyclobenzaprine Allergy Nausea Verified 10/07/17 11:40 [From Flexeril] methocarbamol [From Robaxin] Allergy Hypotension Verified 10/07/17 11:40 NSAIDS (Non-Steroidal Allergy Hypotension Verified 10/07/17 11:40 Anti-Inflamma propoxyphene Allergy Hypotension Verified 10/07/17 11:40 [From Darvocet-N] Tizanidine [From Zanaflex] Allergy Hypotension Verified 10/07/17 11:40 Date of admission: 10/07/17 21:28 Primary care physician: Kamini Lozano, Consults: 10/09/17 17:40 Consult to Physical Therapy [CONS] Routine Comment: Evaluate, develop and implement POC Reason for Consult: weakness, unsteady; discharge planning Does patient have active BEDREST order?: No Is patient medically & hemodynamically stable?: Yes Patient assessed for mobility or mobilized this visit?: Yes 10/09/17 17:42 Consult to Occupational Therapy [CONS] Routine Comment: Evaluate, develop and implement POC Reason for Consult: weakness, unsteady; discharge planning Does patient have active BEDREST order?: No Is patient medically & hemodynamically stable?: Yes Patient assessed for mobility or mobilized this visit?: Yes Discharging clinician: Nicola Quintanilla Anticipated date of discharge: 10/10/17 - Constitutional Vitals: Temp Pulse Resp BP Pulse Ox 97.8 F 69 18 148/97 95 10/10/17 07:15 10/10/17 07:15 10/10/17 07:15 10/10/17 07:15 10/10/17 07:15 General appearance: Present: cooperative, disheveled, A&O X 2, morbidly obese, answers questions appropriately - Patient Status Disposition: Home Health Service Condition: Good - Discharge Instructions Follow Up With: Kamini Lozano MD [Primary Care Provider] - 10/17/17 1:20 pm () - VTE Reasons for not Prescribing Prophylaxis: Not indicated-Anticoagulated or INR therapeutic <Roberto Cuellar - Last Filed: 10/10/17 18:35> Date of Encounter: 10/10/17 - Discharge Diagnosis (1) Respiratory failure Priority: Secondary Status: Chronic Qualifiers: Chronicity: chronic Respiratory failure complication: hypoxia Qualified Code(s): J96.11 - Chronic respiratory failure with hypoxia (2) Pulmonary embolism Priority: Primary Status: Acute Qualifiers: Pulmonary embolism type: other Chronicity: acute Acute cor pulmonale presence: without acute cor pulmonale Qualified Code(s): I26.99 - Other pulmonary embolism without acute cor pulmonale (3) Confusion Priority: Secondary Status: Resolved (4) Urine retention Priority: Secondary Status: Resolved (5) HTN (hypertension) Priority: Secondary Status: Chronic Qualifiers: Hypertension type: essential hypertension Qualified Code(s): I10 - Essential (primary) hypertension (6) CKD (chronic kidney disease), stage III Priority: Secondary Status: Chronic (7) Schizophrenia Priority: Secondary Status: Chronic Qualifiers: Schizophrenia type: unspecified Qualified Code(s): F20.9 - Schizophrenia, unspecified (8) Morbid obesity with BMI of 40.0-44.9, adult Priority: Secondary Status: Chronic (9) Constipation by delayed colonic transit Priority: Secondary Status: Chronic Hospital course: Ms. Vidal is a 62 year old female with hx of schizoaffective disorder presented to ED with complaints of dyspnea. She was evaluated and found to have acute PE. She was subsequently admitted. Ms Vidal was admitted to [facility]. She was started on IV heparin. She required oxygen and levels fluctuated. She was confused on admission and depakote level was elevated. Med was held and level improved so med restarted at lower dose. Duplex neg for DVT. Today she is feeling much better. Pain is better controlled. She is tolerating PO Eliquis. She will be discharged with outpatient follow up. Discharge discussed with: patient, family, nurse - Time Spent with Patient Total time spent providing and/or coordinating discharge services: 42min Date of admission: 10/07/17 21:28 Primary care physician: Kamini Lozano, Consults: 10/09/17 17:40 Consult to Physical Therapy [CONS] Routine Comment: Evaluate, develop and implement POC Reason for Consult: weakness, unsteady; discharge planning Does patient have active BEDREST order?: No Is patient medically & hemodynamically stable?: Yes Patient assessed for mobility or mobilized this visit?: Yes 10/09/17 17:42 Consult to Occupational Therapy [CONS] Routine Comment: Evaluate, develop and implement POC Reason for Consult: weakness, unsteady; discharge planning Does patient have active BEDREST order?: No Is patient medically & hemodynamically stable?: Yes Patient assessed for mobility or mobilized this visit?: Yes - Constitutional Vitals: Temp Pulse Resp BP Pulse Ox 97.8 F 69 18 148/97 93 10/10/17 07:15 10/10/17 07:15 10/10/17 07:15 10/10/17 07:15 10/10/17 11:05 - Head Head exam: Present: normocephalic - Eye Eye exam: Present: conjuntiva pink - ENT ENT exam: Present: mucous membranes moist - Respiratory Respiratory exam: Present: CTAB. Absent: rales, rhonchi, wheezes - Cardiovascular Cardiovascular exam: Present: RRR. Absent: tachycardia - GI/Abdominal GI/Abdominal exam: Present: soft. Absent: tenderness - Extremities Exam Extremities exam: Present: tenderness (Unchanged), warm - Neurological Exam Neurological exam: Present: alert, oriented X3 - Skin Skin exam: Present: dry, warm
--- NOTE | 2017-10-10 11:45 | Physician Discharge Referral ---
Home Health/Hosp Referral Info Transfer to: Home Health Attending Provider: Roberto Cuellar DO - Diagnosis (1) Pulmonary embolism Priority: Primary Status: Acute (2) Confusion Priority: Secondary Status: Resolved (3) Urine retention Priority: Secondary Status: Resolved (4) HTN (hypertension) Priority: Secondary Status: Acute (5) CKD (chronic kidney disease), stage III Priority: Secondary Status: Chronic (6) Schizophrenia Priority: Secondary Status: Acute (7) Morbid obesity with BMI of 40.0-44.9, adult Priority: Secondary Status: Chronic (8) Respiratory failure Priority: Secondary Status: Acute (9) Constipation by delayed colonic transit Priority: Secondary Status: Acute - Respiratory Orders Oxygen / L per min (2-4) Smoking Cessation: Smoking cessation has been advised. For more information, call the [employer] Tobacco Quit Line at 0-722-ZNKV-NOW. - Diet/Nutrition Diet/Nutrition Orders: No Added Salt (WILLI), Cardiac - Activity Activity Orders: Up ad hong, Ambulate - Services Needed Following services are medically necessary services: Nursing, Home Health Aide, Physical Therapy, Occupational Therapy - Transfer Medications Home Medications: Gabapentin [Neurontin] 400 mg PO TID 07/01/16 [History] Hydrochlorothiazide [Microzide] 12.5 mg PO DAILY 07/01/16 [History] Linaclotide [Linzess] 290 mcg PO DAILY 07/01/16 [History] Magnesium Citrate 100 mg PO DAILY PRN 07/01/16 [History] Metoprolol [Lopressor] 25 mg PO BID 07/01/16 [History] OLANZapine [Zyprexa] 20 mg PO DAILY 07/01/16 [History] [place]-3/Dha/Epa/Fish Oil [Fish Oil 1,000 mg Softgel] 2 each PO DAILY 07/01/16 [ History] Ziprasidone HCl [Geodon] 80 mg PO BID 07/01/16 [History] Cholecalciferol (D-3) [Vitamin D] 5,000 unit PO DAILY 10/08/17 [History] Divalproex (12 HR) [Depakote (12 HR)] 1,500 mg PO HS 10/08/17 [History] Divalproex (12 HR) [Depakote (12 HR)] 500 mg PO QAM 10/08/17 [History] Latanoprost [Xalatan] 1 drop OP DAILY 10/08/17 [History] Losartan [Cozaar] 25 mg PO DAILY 10/08/17 [History] OxyCODONE/APAP 10/325 [Percocet 10/325 MG] 1 tab PO Q4HR PRN 10/08/17 [History] Psyllium Husk [Fiber] 0.52 gm PO DAILY 10/08/17 [History] Ranitidine HCl [Heartburn Relief] 150 mg PO BID 10/08/17 [History] Apixaban [Eliquis] 5 mg PO BID tablet 10/10/17 [Rx] Apixaban [Eliquis] 10 mg PO BID 14 Days tablet 10/10/17 [Rx] Docusate [Colace] 200 mg PO DAILY capsule 10/10/17 [Rx] Allergies/Adverse Reactions: 3 Allergy/AdvReac Type Severity Reaction Status Date / Time Cyclobenzaprine Allergy Nausea Verified 10/07/17 11:40 [From Flexeril] methocarbamol [From Robaxin] Allergy Hypotension Verified 10/07/17 11:40 NSAIDS (Non-Steroidal Allergy Hypotension Verified 10/07/17 11:40 Anti-Inflamma propoxyphene Allergy Hypotension Verified 10/07/17 11:40 [From Darvocet-N] Tizanidine [From Zanaflex] Allergy Hypotension Verified 10/07/17 11:40 Certification: Further, I certify that my clinical findings support that this patient is homebound (i.e. absences from home require considerable and taxing effort and are for medical reasons or advent services or infrequently or short duration when for other reasons) because: Homebound Reason: Leaving home requires considerable and taxing effort due to condition, Severity of cardiac or pulmonary status limits activity tolerance Attestation: My signature below is to certify that this patient is under my care and that I, or nurse practitioner, or a physician's assistant office manager working with me, has a face-to -face encounter with this patient.
[2017-10-10] MEDS ORDERED: Latanoprost 2.5 ML BOTTLE BOTH EYES SCH (21:00)
[2017-10-16] MEDS ORDERED: Apixaban 5 MG TABLET PO SCH (09:00)
== END 2017-10-10 14:12 | disposition home health service (06) | DRG 175 ==
LOC: EMEROO 13:04 → 2SOUTHHOLD 13:04 → SUATTDRO 21:28 → 2ANU 10-09 18:24
PROVIDERS: ADMIT Internal Medicine; ATTEND Internal Medicine